=== PATIENT | female | born 1960 | race African-American/Black ===

== ENCOUNTER 2019-06-30 21:13 | Emergency (ER) | payer OTHER ==
[~2019-06-30] VITALS: Ht 157.5 cm; Wt 65.8 kg
--- NOTE | 2019-06-30 21:21 | NUR ---
PT BIB SELF C/O CHEST PAIN FOR 4 DAYS, PT IS AAOX3, NOT IN RESPIRATORY DISTRESS, HOOKED TO MONITOR, KEPT RESTED AND COMFORTABLE, WILL CONTINUE TO MONITOR.
--- NOTE | 2019-06-30 21:47 | NUR ---
PT SEEN AND EXAMINED BY ABIGAIL BRITTON.
[2019-06-30 22:08] LABS: BASOPHILS % (AUTO) 1.2 % (0.0-2.0); EOSINOPHILS % (AUTO) 4.5 % (0.0-6.0); HEMATOCRIT 37 % (33-45); HEMOGLOBIN 11.4 g/dL (11.5-14.8); LYMPHOCYTES % (AUTO) 48.7 % (20.0-44.0); MEAN CORPUSCULAR HGB CONC 31 g/dl (31.0-36.0); MEAN CORPUSCULAR VOLUME 79 fL (82-100); MONOCYTES # (AUTO) 0.3 /CMM (0.1-1.30); MONOCYTES % (AUTO) 6.6 % (2.0-12.0); NEUTROPHILS # (AUTO) 1.6 /CMM (1.8-8.9); PLATELET COUNT (AUTO) 371 /CMM (150-450); RED BLOOD CELL COUNT(AUTO) 4.59 MIL/uL (4.0-5.2)
--- NOTE | 2019-06-30 22:10 | NUR ---
URINE SPECIMEN COLLECTED AND SENT TO LAB.
[2019-06-30 22:17] LABS: CALCIUM, SERUM 8.9 mg/dL (8.5-10.1); CARBON DIOXIDE 31 mmol/L (21-32); CHLORIDE 101 mmol/L (98-107); CREATININE 0.6 mg/dL (0.6-1.3); GLUCOSE 96 mg/dL (74-106); POTASSIUM 3.5 mmol/L (3.5-5.1); SODIUM SERUM 137 mmol/L (136-145); UREA NITROGEN, BLOOD 13 mg/dL (7-18)
[2019-06-30 22:22] LABS: ALANINE AMINOTRANSFERASE 15 U/L (12-78); ALBUMIN 3.7 g/dL (3.4-5.0); ALKALINE PHOSPHATASE 104 U/L (46-116); ASPARTATE AMINOTRANSFERASE 19 U/L (15-37); BILIRUBIN,DIRECT 0.1 mg/dL (0.0-0.2); BILIRUBIN,TOTAL 0.2 mg/dL (0.2-1.0); TOTAL PROTEIN, SERUM 7.2 g/dL (6.4-8.2)
--- NOTE | 2019-06-30 23:05 | NUR ---
ER PHLEB AT BEDSIDE FOR BLOOD DRAW.
--- NOTE | 2019-06-30 23:54 | NUR ---
PT REFUSING TO LEAVE ER. WANTS TO FIND PLACEMENT WITH CALENDERING SUPERVISOR. AWARE, PT WILL WAIT IN ER FOR CALENDERING SUPERVISOR IN THE AM.
--- NOTE | 2019-06-30 23:55 | NUR ---
PT REFUSED TO BE DISCHARGED AND WILL WAIT FOR THE TRAFFIC CONTROLLER CABLE.
[2019-07-01] MEDS ORDERED: LORAZEPAM 1 MG TABLET PO ONE (01:00)
[2019-07-01] MEDS ORDERED: OLANZAPINE 5 MG TABLET PO ONE (01:00)
[2019-07-01 06:00] VITALS: BP 123/86
== END 2019-07-01 09:08 | disposition home or self-care (01) ==
LOC: ER 21:14
DX: R07.89 Other chest pain (principal); I50.9 Heart failure, unspecified; J45.909 Unspecified asthma, uncomplicated; F41.9 Anxiety disorder, unspecified; F32.9 Major depressive disorder, single episode, unspecified; F43.10 Post-traumatic stress disorder, unspecified; F17.200 Nicotine dependence, unspecified, uncomplicated; F20.9 Schizophrenia, unspecified
CPT/HCPCS: 36415; 71045-TC; 80048-TC; 80076-TC; 80305; 84484-TC; 85025-TC; G0480

== ENCOUNTER 2020-04-06 15:02 | Emergency (ER) | payer OTHER ==
[~2020-04-06] VITALS: Ht 157.5 cm; Wt 65.8 kg
--- NOTE | 2020-04-06 15:02 | NUR ---
PT BIB SELF C/O DEPRESSION/SI " IWANT TO RUN THRU TRAFFIC" PT IS AAXO4, NOT IN RESPIRATORY DISTRESS, V/S STABLE, KEPT RESTED AND COMFORTABLE. WILL CONTINUE TO MONITOR.
--- NOTE | 2020-04-06 15:25 | NUR ---
URINE SPECIMEN COLLECTED AND SENT TO LAB.
--- NOTE | 2020-04-06 16:00 | NUR ---
ER PHLEB AT BEDSIDE FOR BLOOD DRAW.
[2020-04-06 16:10] LABS: BASOPHILS % (AUTO) 0.7 % (0.0-2.0); EOSINOPHILS % (AUTO) 8.2 % (0.0-6.0); HEMATOCRIT 36 % (33-45); HEMOGLOBIN 10.9 g/dL (11.5-14.8); LYMPHOCYTES # (AUTO) 1.8 /CMM (0.8-4.8); LYMPHOCYTES % (AUTO) 42.1 % (20.0-44.0); MEAN CORPUSCULAR HGB CONC 31 g/dl (31.0-36.0); MEAN CORPUSCULAR VOLUME 78 fL (82-100); MONOCYTES # (AUTO) 0.2 /CMM (0.1-1.30); MONOCYTES % (AUTO) 4.8 % (2.0-12.0); NEUTROPHILS # (AUTO) 1.9 /CMM (1.8-8.9); NEUTROPHILS % (AUTO) 44.2 % (43.0-81.0); PLATELET COUNT (AUTO) 260 /CMM (150-450); RED BLOOD CELL COUNT(AUTO) 4.54 MIL/uL (4.0-5.2); WHITE BLOOD COUNT (AUTO) 4.3 K/uL (4.3-11.0)
[2020-04-06 16:16] LABS: CALCIUM, SERUM 8.5 mg/dL (8.5-10.1); CREATININE 0.7 mg/dL (0.6-1.3); POTASSIUM 3.3 mmol/L (3.5-5.1)
[2020-04-06 16:21] LABS: ALBUMIN 3.2 g/dL (3.4-5.0); BILIRUBIN,DIRECT 0.1 mg/dL (0.0-0.2); BILIRUBIN,TOTAL 0.2 mg/dL (0.2-1.0); SALICYLATE 3.2 mg/dL (2.8-20.0); TOTAL PROTEIN, SERUM 6.5 g/dL (6.4-8.2)
[2020-04-06 16:27] LABS: APPEARANCE,URINE Clear (CLEAR); BILIRUBIN,URINE Negative (NEGATIVE); BLOOD, URINE Negative Ery/uL (NEGATIVE); COLOR,URINE Yellow (YELLOW); KETONES,URINE Negative (NEGATIVE); LEUKOCYTE ESTERASE ,URINE Negative (NEGATIVE); NITRITE, URINE Negative (NEGATIVE); PROTEIN,URINE Negative (NEGATIVE); UGLUCOSE Negative (NEGATIVE); UROBILINOGEN,URINE 0.2 EU/dL (0.2)
--- NOTE | 2020-04-06 19:45 | NUR ---
ASSUMED CARE FOR THIS PT
--- NOTE | 2020-04-06 20:45 | NUR ---
PT RESTING COMFORTABLY IN BED. VSS. NO MEDICAL COMPLAINTS AT THIS TIME. SITTER AT BEDSIDE FOR SAFETY. WILL CONTINUE TO MONITOR
--- NOTE | 2020-04-06 20:58 | NUR ---
CLINICAL FAXED TO [facility] INTAKE FOR VOLUNTARY PSYCH ADMISSION.
--- NOTE | 2020-04-06 22:01 | NUR ---
ACCEPTED AT [facility] [phone]
--- NOTE | 2020-04-06 22:17 | NUR ---
CALLED [id number] FOR TX THEY WILL CALL US WITH AN UPDATED TX IN 30 MINS RESERVATION# [id number]
--- NOTE | 2020-04-06 22:17 | NUR ---
REPORT GIVEN TO BRIGID SALGADO [facility] FOR [facility]
--- NOTE | 2020-04-06 22:31 | NUR ---
[facility] ETA [id number]
--- NOTE | 2020-04-07 00:17 | NUR ---
TRANSPORT AT BEDSIDE REPORT GIVEN TO EMT
[2020-04-07 00:24] VITALS: BP 131/68
== END 2020-04-07 00:41 ==
LOC: ER 15:08
DX: F32.9 Major depressive disorder, single episode, unspecified (principal); F19.10 Other psychoactive substance abuse, uncomplicated; R45.851 Suicidal ideations; I50.9 Heart failure, unspecified; J45.909 Unspecified asthma, uncomplicated; F41.9 Anxiety disorder, unspecified; F43.10 Post-traumatic stress disorder, unspecified; F17.200 Nicotine dependence, unspecified, uncomplicated
CPT/HCPCS: 36415; 80048; 80076; 80305; 80307; 80329; 81001; 85025; 99285; G0480; 81000-TC

== ENCOUNTER 2020-09-03 19:06 | Emergency (ER) | payer OTHER ==
[~2020-09-03] VITALS: Ht 157.5 cm; Wt 65.8 kg
--- NOTE | 2020-09-03 22:43 | NUR ---
LAB DRAWING PT BLOOD.
[2020-09-03 22:51] LABS: BASOPHILS # (AUTO) 0.1 /CMM (0.0-0.2); BASOPHILS % (AUTO) 1.5 % (0.0-2.0); EOSINOPHILS % (AUTO) 5.2 % (0.0-6.0); HEMATOCRIT 43 % (33-45); HEMOGLOBIN 13.7 g/dL (11.5-14.8); LYMPHOCYTES % (AUTO) 44.5 % (20.0-44.0); MEAN CORPUSCULAR HGB CONC 32 g/dl (31.0-36.0); MEAN CORPUSCULAR VOLUME 82 fL (82-100); MONOCYTES # (AUTO) 0.2 /CMM (0.1-1.30); MONOCYTES % (AUTO) 4.6 % (2.0-12.0); NEUTROPHILS % (AUTO) 44.2 % (43.0-81.0); PLATELET COUNT (AUTO) 355 /CMM (150-450); WHITE BLOOD COUNT (AUTO) 4.4 K/uL (4.3-11.0)
[2020-09-03 23:00] LABS: CALCIUM, SERUM 8.8 mg/dL (8.5-10.1); CREATININE 0.8 mg/dL (0.6-1.3); POTASSIUM 3.8 mmol/L (3.5-5.1)
[2020-09-03 23:05] LABS: ALBUMIN 3.5 g/dL (3.4-5.0); BILIRUBIN,DIRECT 0.1 mg/dL (0.0-0.2); BILIRUBIN,TOTAL 0.2 mg/dL (0.2-1.0); TOTAL PROTEIN, SERUM 7.3 g/dL (6.4-8.2)
[2020-09-03 23:15] LABS: BILIRUBIN,URINE Negative (NEGATIVE); COLOR,URINE YELLOW (YELLOW); LEUKOCYTE ESTERASE ,URINE Negative (NEGATIVE); NITRITE, URINE Negative (NEGATIVE); PH,URINE 5.5 (5.0-8.0); PROTEIN,URINE Negative (NEGATIVE); UGLUCOSE Negative (NEGATIVE); UROBILINOGEN,URINE 0.2 EU/dL (0.2)
--- NOTE | 2020-09-03 23:51 | NUR ---
CALL FROM LAB. RAPID COVID NEGATIVE.
--- NOTE | 2020-09-04 00:05 | NUR ---
FACESHEET AND INFORMATION FAXED TO [facility] INTAKE.
--- NOTE | 2020-09-04 00:39 | NUR ---
CALL FROM [facility] INTAKE. PT ACCEPTED TO [facility] BY DR [facility]ED[facility]O AFTER [address]. [address] # FOR REPORT [phone]
--- NOTE | 2020-09-04 02:15 | NUR ---
[facility] ETA 0925
--- NOTE | 2020-09-04 05:40 | NUR ---
CALLED [facility] FOR REPORT. NO RESPONSE.
--- NOTE | 2020-09-04 06:48 | NUR ---
REPORT GIVEN TO ALEXANDER PRIDE.
[2020-09-04 06:57] VITALS: BP 132/67
--- NOTE | 2020-09-04 06:58 | NUR ---
REPORT GIVEN TO EMT TRANSPORT.
== END 2020-09-04 06:58 ==
LOC: ER 19:19
DX: R45.851 Suicidal ideations (principal); Z20.828 Contact with and (suspected) exposure to other viral communicable diseases; J45.909 Unspecified asthma, uncomplicated; F43.10 Post-traumatic stress disorder, unspecified; F41.9 Anxiety disorder, unspecified; F32.9 Major depressive disorder, single episode, unspecified
CPT/HCPCS: 36415; 71045; 80048; 80076; 80299; 80307; 80320; 81003; 85025; 87426; 99285; C9803; G0480